=== PATIENT | female | born 1940 | race Caucasian/White ===

== ENCOUNTER → 2018-07-23 | Outpatient (REF) | payer MEDICARE ==
[~2018-07-23] MED LIST: ASPIRIN325 MG PO; BABY ASPIRIN81 MG PO; COREG6.25 MG PO; FLUZONE SPLT1 M1 IM; GABAPENTIN400 M2 OR; LISINOP/HCTZ1 TA2 PO; METFORMIN HCL500 MG OR; METFORMIN HCL500 MG PO; METFORMIN500 MG PO; NEURONTIN800 MG PO; PLAVIX75 MG PO; VITAMIN D1000 UNIT PO; ZOSTAVAX IM
[2018-07-23 09:42] LABS: HEMOGLOBIN 10.6 g/dl (12.0-16.0); MEAN CORPUSCULAR HGB 30.2 pG CALC (26.0-32.0); MEAN CORPUSCULAR HGB CONC 32.1 g/L CALC (32.0-36.0); RED BLOOD COUNT 3.51 mill/uL (4.20-5.60); RED CELL DISTRI WIDTH 14.1 % (11.5-15.5)
[2018-07-23 10:09] LABS: ALBUMIN 3.8 g/dL (3.2-5.0); BILIRUBIN, TOTAL 0.3 mg/dL (0.0-1.4); CHOLESTEROL HDL RATIO 2.7 (<4.4 (CALC)); CREATININE 1.1 mg/dL (0.5-1.0); POTASSIUM 4.4 mmol/l (3.5-5.1); TOTAL PROTEIN 6.5 g/dL (6.3-8.2)
[2018-07-23 10:36] LABS: TSH, 3RD GENERATION 3.83 uIU/mL (0.47 - 4.68)
== END | disposition home or self-care (01) ==
LOC: LAB 09:17
PROVIDERS: ATTEND Nurse Practitioner Adult Health
DX: E11.65 Type 2 diabetes mellitus with hyperglycemia (principal); E78.5 Hyperlipidemia, unspecified

== ENCOUNTER 2021-07-03 16:20 | Emergency (ER) | payer MEDICARE ==
[~2021-07-03] VITALS: Ht 160 cm; Wt 60.0 kg
[2021-07-03 17:00] LABS: HEMATOCRIT 37.6 % (37.0-47.0); HEMOGLOBIN 12.3 g/dl (12.0-16.0); MEAN CELL VOLUME 95.7 fL CALC (80.0-100.0); MEAN CORPUSCULAR HGB 31.3 pG CALC (26.0-32.0); MEAN CORPUSCULAR HGB CONC 32.7 g/dL CAL (32.0-36.0); NEUT# 2.56 thou/uL (2.00-7.15); RED BLOOD COUNT 3.93 mill/uL (4.20-5.60)
[2021-07-03 17:15] VITALS: BP 164/70
[2021-07-03 17:19] LABS: ALBUMIN 4.4 g/dL (3.2-5.0); ALKALINE PHOSPHATASE 73 u/l (38-126); ANION GAP 14 (6-22 (CALC)); BILIRUBIN, TOTAL 0.4 mg/dL (0.0-1.4); BUN 24 mg/dL (8-23); BUN/CREATININE RATIO 23 (12-20 (CALC)); CARBON DIOXIDE 27 mmol/l (22-30); CHLORIDE 101 mmol/l (95-108); GFR 53 ML/MIN (>=60 (CALC)); GFR FOR AFR.AMER. > 60 ML/MIN (>=60 (CALC)); POTASSIUM 3.8 mmol/l (3.5-5.1); SGOT/AST 24 u/l (9-36); SODIUM 138 mmol/l (137-146); TOTAL PROTEIN 7.5 g/dL (6.3-8.2)
== END 2021-07-03 17:19 | disposition short-term general hospital (02) ==
LOC: ED 16:20
PROVIDERS: Family Medicine
DX: I20.0 Unstable angina (principal); I16.1 Hypertensive emergency; I10 Essential (primary) hypertension; E11.9 Type 2 diabetes mellitus without complications; Z86.73 Personal history of transient ischemic attack (TIA), and cerebral infarction without residual deficits; Z79.84 Long term (current) use of oral hypoglycemic drugs